=== PATIENT | female | born 1960 | race African-American/Black ===

== ENCOUNTER 2024-01-12 10:40 | Inpatient (IN) | payer OTHER ==
[2024-01-12] VITALS (8 sets, daily range): BP systolic 135–167; BP diastolic 68–102; PULSE 76–86; RESP 12–22; TEMP 98.3–98.8; O2SAT 96–100
[~2024-01-12] VITALS: Ht 162.6 cm; Wt 143.7 kg
[2024-01-12 11:44] LABS: Basophils # (auto) 0.1 10 ^3/uL (0-0.2); Eosinophils # (auto) 0.1 10 ^3/uL (0-0.8)
[2024-01-12 11:48] LABS: Basophils % (auto) 0.8 % (0.0-2.0); Eosinophils % (auto) 0.7 % (0.0-7.0); Hematocrit 37.9 % (36.0-46.0); Hemoglobin 12.3 g/dL (12.2-16.2); Lymphocytes # (auto) 2.5 10 ^3/uL (0.4-5.4); Lymphocytes % (auto) 19.3 % (10.0-50.0); Mean Corpuscular Hemoglobin 26.3 pg (28.0-32.0); Mean Corpuscular Hgb Conc. 32.4 g/dL (32.0-36.0); Mean Corpuscular Volume 81.1 fL (80.0-100.0); Monocytes # (auto) 0.8 10 ^3/uL (0-1.3); Monocytes % (auto) 6.5 % (0.0-12.0); Neutrophils # (auto) 9.2 10 ^3/uL (1.6-8.6); Neutrophils % (auto) 72.7 % (37.0-80.0); Nucleated Red Blood Cells % 0.1 %; Red Blood Cells 4.67 10^6/uL (4.0-5.20); Red Cell Distribution Width 14.8 % (11.8-14.3); White Blood Cell 12.7 10^3/uL (4.4-10.8)
[2024-01-12 11:59] LABS: INR 0.99 (0.9-1.15); Partial Thromboplastin Time 32.7 SEC (24.5-34.5); Prothrombin Time 10.4 sec (9.3-11.8)
[2024-01-12 12:16] LABS: Alanine Aminotransferase 19 U/L (7-40); Alkaline Phosphatase 85 U/L (46-116); Anion Gap 7 (5-15); Aspartate Aminotransferase 56 U/L (13-40); BUN/Creatinine Ratio 14.5 (10.0-20.0); Blood Urea Nitrogen 26 mg/dL (9-23); Carbon Dioxide 24 mmol/L (20-30); Chloride 107 mmol/L (98-107); Glucose 156 mg/dL (74-106); Magnesium 2.2 mg/dL (1.6-2.6); Potassium 4.1 mmol/L (3.5-5.1); Sodium 138 mmol/L (136-145)
[2024-01-12 12:17] LABS: Bilirubin, Total 0.5 mg/dL (0.2-1.0); Total Protein 6.9 g/dL (5.7-8.2)
[2024-01-12] MEDS ORDERED: HEPARIN DRIP/D5W 100UNITS/ML 250 ML IV SCH (13:45)
[2024-01-12] MEDS: ASPirin 325 MG TAB PO ONE (13:45)
[2024-01-12] MEDS: HEPARIN SODIUM (PORCINE) 5000 UNITS/ML 1ML VIAL IV ONE (13:45)
[2024-01-12] MEDS: MIDAZOLAM HCL 2MG/2ML 2ml VIAL (1mg/ml) ONE (13:48)
[2024-01-12] MEDS: fentaNYL CITRATE 100 MCG/2 ML VL ONE (13:48)
[2024-01-12] MEDS: IODIXANOL 320MG/ML 100ML BTL IV ONE ×2 (13:48→14:04)
[2024-01-12] MEDS: LIDOCAINE 2%HCL (LOCAL ANESTH.) INJ 20ML MDV ONE (13:50)
[2024-01-12] MEDS: VERAPAMIL 2.5MG/ML INJ 2ML VIAL IV ONE (13:50)
[2024-01-12] MEDS: SODIUM CHL 0.9% 50 ML ONE ×2 (13:50→14:51)
[2024-01-12] MEDS: HEPARIN SODIUM (PORCINE) 5000 UNITS/ML 1ML VIAL ONE (13:50)
[2024-01-12] MEDS: ANGIOMAX 250 MG VIAL IV ONE ×2 (13:50→14:50)
[2024-01-12 13:53] LABS: Urine Bacteria FEW /hpf (None Seen); Urine Blood TRACE /uL (Negative); Urine Clarity Clear (Clear); Urine Color Light-Yellow (Yellow); Urine Protein, UAD 2+ (Negative); Urine Specific Gravity 1.037 (1.001-1.035); Urine Urobilinogen Normal (Negative); Urine WBC 8 /hpf (0 - 5); Urine pH 5.5 (5.0-9.0)
[2024-01-12] MEDS: SODIUM CHLOR 0.9% PF (SALINE LOCK) 10ML VIAL/SYR IV SCH (14:00)
[2024-01-12 14:02] LABS: Amphetamine Screen, Urine Neg (NEGATIVE); Barbiturate Scree,Urine Neg (NEGATIVE); Benzodiazephine Screen, Urine Neg (NEGATIVE); Cannabinoid Screen, Urine Neg (NEGATIVE); Cocaine Screen, Urine Neg (NEGATIVE); Opiate Scree,Urine Neg (NEGATIVE); Phencyclidine Screen, Urine Neg (NEGATIVE)
[2024-01-12] MEDS ORDERED: MET25T PO (14:25)
[2024-01-12] MEDS ORDERED: LOSA-535 PO (14:25)
[2024-01-12] MEDS ORDERED: EMPA1TAB3 PO (14:25)
[2024-01-12] MEDS ORDERED: CLOP75TA70 PO (14:25)
[2024-01-12] MEDS ORDERED: SEMA2INJ3 SC (14:25)
[2024-01-12] MEDS ORDERED: ATOR40TA52 PO (14:25)
[2024-01-12] MEDS ORDERED: INSU100I70 SC (14:25)
[2024-01-12] MEDS ORDERED: METO-159 PO (14:25)
[2024-01-12] MEDS: ATROPINE SULF 1 MG/10ml SYR ONE (14:28)
[2024-01-12] MEDS ORDERED: DEXTROSE (50%) 50ML SYRG IV PRN (14:30)
[2024-01-12] MEDS ORDERED: NITROGLYCERIN 0.4 MG SL TAB SL PRN (14:30)
[2024-01-12] MEDS ORDERED: MORPHINE SULFATE INJ 2 MG/ml SYRG IV PRN (14:30)
[2024-01-12 14:39] LABS: Triglycerides 196 mg/dL (< 150)
[2024-01-12 14:40] LABS: LDL Cholesterol 143 mg/dL (< 100)
[2024-01-12 14:41] LABS: Cholesterol 225 mg/dL (< 200); HDL Cholesterol 44 mg/dL (40-59)
[2024-01-12] MEDS: HYDROmorphone HCL 2 MG/ML VL/or syr ONE (14:41)
[2024-01-12] MEDS: LABETALOL HCL 5 MG/ML ML 20ML VIAL IV ONE (14:55)
[2024-01-12] MEDS: ceFAZolin 1GM/50ML 50 ML IV ONE (14:56)
[2024-01-12] MEDS: ASPirin 325 MG TAB ONE (14:59)
[2024-01-12] MEDS: TICAGRELOR 90 MG TAB ONE (14:59)
[2024-01-12] MEDS: hydrALAZINE HCL 20 MG/ML VL ONE (15:33)
[2024-01-12] MEDS: ONDANSETRON HCL 4 MG/2 ML VIAL IV PRN (15:45)
[2024-01-12] MEDS: InsuLIN REG 1unit/0.01ml Soln (100units/ml) SC SCH (17:00)
[2024-01-12] MEDS: ACCU-CHEK COMFORT CURVE STRIP VI SCH (17:45)
[2024-01-12] MEDS: SODIUM CHLORIDE 0.9% 1,000 ML IV SCH (17:47)
[2024-01-12] MEDS: HYDROcodone-ACET 5/325MG TAB PO PRN (17:56)
[2024-01-12] MEDS: cefTRIAXone 1GM/50ML D5W 50 ML IV ONE (17:56)
[2024-01-12] MEDS: MORPHINE SULFATE INJ 2 MG/ml SYRG IM ONE (19:30)
[2024-01-12] MEDS: IBUPROFEN 600 MG TAB PO ONE (19:30)
[2024-01-12] MEDS: METOPROLOL TARTRATE 25 MG TAB PO SCH (19:55)
[2024-01-12] MEDS: TICAGRELOR 90 MG TAB PO SCH (19:56)
[2024-01-12] MEDS: ATORVASTATIN 20 MG TAB PO SCH (21:56)
[2024-01-13] VITALS (9 sets, daily range): BP systolic 80–162; BP diastolic 46–98; PULSE 68–83; RESP 18–22; TEMP 97.2–98.3; O2SAT 93–100
[2024-01-13 07:56] LABS: Basophils # (auto) 0.1 10 ^3/uL (0-0.2); Basophils % (auto) 0.4 % (0.0-2.0); Eosinophils # (auto) 0.1 10 ^3/uL (0-0.8); Eosinophils % (auto) 0.9 % (0.0-7.0); Hematocrit 35.1 % (36.0-46.0); Hemoglobin 11.3 g/dL (12.2-16.2); Lymphocytes # (auto) 2.4 10 ^3/uL (0.4-5.4); Lymphocytes % (auto) 19.8 % (10.0-50.0); Mean Corpuscular Hemoglobin 26.2 pg (28.0-32.0); Mean Corpuscular Hgb Conc. 32.1 g/dL (32.0-36.0); Mean Corpuscular Volume 81.7 fL (80.0-100.0); Monocytes # (auto) 1.2 10 ^3/uL (0-1.3); Monocytes % (auto) 10.1 % (0.0-12.0); Neutrophils # (auto) 8.2 10 ^3/uL (1.6-8.6); Neutrophils % (auto) 68.8 % (37.0-80.0); Nucleated Red Blood Cells % 0.1 %; Red Cell Distribution Width 14.7 % (11.8-14.3)
[2024-01-13 08:12] LABS: Alanine Aminotransferase 16 U/L (7-40); Alkaline Phosphatase 80 U/L (46-116); Anion Gap 8 (5-15); Calcium 9.3 mg/dL (8.5-10.1); Carbon Dioxide 24 mmol/L (20-30); Chloride 107 mmol/L (98-107); Glucose 84 mg/dL (74-106); Potassium 4.2 mmol/L (3.5-5.1); Sodium 139 mmol/L (136-145)
[2024-01-13 08:13] LABS: BUN/Creatinine Ratio 10.2 (10.0-20.0); Blood Urea Nitrogen 21 mg/dL (9-23)
[2024-01-13 08:15] LABS: Albumin 3.6 g/dL (3.2-4.8); Aspartate Aminotransferase 55 U/L (13-40); Bilirubin, Total 0.4 mg/dL (0.2-1.0); Total Protein 6.5 g/dL (5.7-8.2)
[2024-01-13] MEDS: ASPirin 81 mg TAB PO SCH (09:19)
[2024-01-13] MEDS: cefTRIAXone 1GM/50ML D5W 50 ML IV SCH (09:19)
[2024-01-13] MEDS: ACETAMINOPHEN 325 MG TAB PO PRN (10:15)
[2024-01-13] MEDS: PANTOPRAZOLE 40 MG/10 ML VIAL INJ IV ONE (11:45)
[2024-01-13] MEDS: SODIUM CHLORIDE 0.9% 500 ML IV ONE (14:45)
[2024-01-13] MEDS: SODIUM CHLORIDE 0.9% 1,000 ML IV ONE (17:28)
[2024-01-13 19:11] LABS: Urine Bacteria None Seen /hpf (None Seen)
[2024-01-13 19:30] LABS: Urine Blood 3+ /uL (Negative); Urine Clarity Turbid (Clear); Urine Color Yellow (Yellow); Urine Mucus FEW (None Seen); Urine Protein, UAD 2+ (Negative); Urine Specific Gravity 1.036 (1.001-1.035); Urine Urobilinogen Normal (Negative); Urine WBC 16 /hpf (0 - 5); Urine pH 5.5 (5.0-9.0)
[2024-01-13] MEDS: METOCLOPRAMIDE HCL 10 MG TAB PO SCH (21:55)
[2024-01-13] MEDS: SODIUM CHLORIDE 0.9% 1,000 ML IV SCH (21:57)
[2024-01-14 01:00] VITALS: BP 150/80; PULSE 90; RESP 18; TEMP 98.1; O2SAT 98
[2024-01-14 05:46] LABS: Basophils # (auto) 0.1 10 ^3/uL (0-0.2); Eosinophils # (auto) 0.2 10 ^3/uL (0-0.8); Eosinophils % (auto) 1.4 % (0.0-7.0); Lymphocytes # (auto) 2.1 10 ^3/uL (0.4-5.4)
[2024-01-14 05:48] LABS: Basophils % (auto) 0.6 % (0.0-2.0); Hematocrit 34.3 % (36.0-46.0); Hemoglobin 10.7 g/dL (12.2-16.2); Lymphocytes % (auto) 18.9 % (10.0-50.0); Mean Corpuscular Hemoglobin 25.7 pg (28.0-32.0); Mean Corpuscular Hgb Conc. 31.2 g/dL (32.0-36.0); Mean Corpuscular Volume 82.4 fL (80.0-100.0); Monocytes # (auto) 1.1 10 ^3/uL (0-1.3); Monocytes % (auto) 9.9 % (0.0-12.0); Neutrophils # (auto) 7.7 10 ^3/uL (1.6-8.6); Neutrophils % (auto) 69.2 % (37.0-80.0); Red Blood Cells 4.16 10^6/uL (4.0-5.20); White Blood Cell 11.1 10^3/uL (4.4-10.8)
[2024-01-14 06:01] LABS: Anion Gap 9 (5-15); Carbon Dioxide 21 mmol/L (20-30); Chloride 108 mmol/L (98-107); Potassium 4.2 mmol/L (3.5-5.1); Sodium 138 mmol/L (136-145)
[2024-01-14 06:03] LABS: Calcium 8.9 mg/dL (8.5-10.1)
[2024-01-14 06:08] LABS: BUN/Creatinine Ratio 10.4 (10.0-20.0); Blood Urea Nitrogen 29 mg/dL (9-23); Glucose 158 mg/dL (74-106)
[2024-01-14 08:00] VITALS: PULSE 82
[2024-01-14 08:15] VITALS: BP 131/82; PULSE 80; RESP 18; TEMP 98.3; O2SAT 97
[2024-01-14] MEDS: PANTOPRAZOLE 40 MG/10 ML VIAL INJ IV SCH (09:57)
[2024-01-14] MEDS: FUROSEMIDE 40 MG/4 ML VIAL IV ONE (09:58)
[2024-01-14] MEDS ORDERED: DexAMETHasone INJECTION 10 MG in D5W 5% 50 ML IV SCH (10:00)
[2024-01-14 12:15] VITALS: BP 160/84; PULSE 77; RESP 20; TEMP 97.7; O2SAT 98
[2024-01-14 17:00] VITALS: BP 154/98; PULSE 83; RESP 22; TEMP 98.1; O2SAT 95
[2024-01-14 17:24] VITALS: BP 131/82; PULSE 80
[2024-01-14] MEDS: HYDROmorphone HCL 2 MG/ML VL/or syr IV ONE (18:31)
== END 2024-01-14 19:03 | disposition short-term general hospital (02) | DRG 321 ==
LOC: ER 10:40 → TELE 14:24 → TELE-CENTR 17:43
PROVIDERS: ADMIT Nurse Practitioner Family; ATTEND Internal Medicine
PROC: 027035Z Dilation of Coronary Artery, One Artery with Two Drug-eluting Intraluminal Devices, Percutaneous Approach (ICD-10-PCS; principal; 2024-01-12)
PROC: 02C03ZZ Extirpation of Matter from Coronary Artery, One Artery, Percutaneous Approach (ICD-10-PCS; 2024-01-12)
PROC: 4A023N7 Measurement of Cardiac Sampling and Pressure, Left Heart, Percutaneous Approach (ICD-10-PCS; 2024-01-12)
PROC: B211YZZ Fluoroscopy of Multiple Coronary Arteries using Other Contrast (ICD-10-PCS; 2024-01-12)
PROC: B41JYZZ Fluoroscopy of Other Lower Arteries using Other Contrast (ICD-10-PCS; 2024-01-12)
DX: I21.19 ST elevation (STEMI) myocardial infarction involving other coronary artery of inferior wall (principal); N17.0 Acute kidney failure with tubular necrosis; G93.40 Encephalopathy, unspecified; I69.354 Hemiplegia and hemiparesis following cerebral infarction affecting left non-dominant side; Z68.43 Body mass index [BMI] 50.0-59.9, adult; R65.10 Systemic inflammatory response syndrome (SIRS) of non-infectious origin without acute organ dysfunction; E66.01 Morbid (severe) obesity due to excess calories; E78.5 Hyperlipidemia, unspecified; E11.22 Type 2 diabetes mellitus with diabetic chronic kidney disease; N18.9 Chronic kidney disease, unspecified; R04.0 Epistaxis; I12.9 Hypertensive chronic kidney disease with stage 1 through stage 4 chronic kidney disease, or unspecified chronic kidney disease; F17.200 Nicotine dependence, unspecified, uncomplicated; E11.65 Type 2 diabetes mellitus with hyperglycemia; Z79.899 Other long term (current) drug therapy; Z79.82 Long term (current) use of aspirin; Z79.02 Long term (current) use of antithrombotics/antiplatelets; Z88.5 Allergy status to narcotic agent
CPT/HCPCS: 36415; 70450; 70496; 71045; 76775; 80048; 80053; 80061; 80307; 81001; 82962; 83036; 83605; 83735; 83880; 83930; 84443; 84484; 85025; 85610; 85730; 87040; 93005; 93306; 96365; 99152; C9113; G0378; J1100; J1815; J2250; J2405; J7060; Q9967

== ENCOUNTER 2025-05-05 20:17 | Emergency (ER) | payer OTHER ==
[~2025-05-05] VITALS: Ht 172.7 cm; Wt 130.0 kg
[~2025-05-05 20:17] MED LIST: ATOR40TA52 PO; CLOP75TA70 PO; EMPA1TAB3 PO; INSU100I70 SC; LOSA-535 PO; MET25T PO; METO-159 PO; SEMA2INJ3 SC
--- NOTE | 2025-05-05 21:14 | ED.PDOC ---
Musculoskeletal HPI Comments 64-year-old female who came to ER for bilateral leg edema. Patient has a history of hypertension, diabetes, dyslipidemia, kidney failure, mi, CVA with left-sided residuals. Has been complaining of bilateral pedal edema for over 3 months, left worse than right, associated with shooting pains from the foot go ing upwards. Patient has been given Lasix offered no relief of the swelling. Patient is sent here by [facility], to rule out DVTs. Upon arrival blood pressure was 202/91 mm Hg Chief Complaint: Lower Extremity Time Seen by MD: 21:13 Primary Care Provider: WIL Reviewed Notes: Nurses Notes Allergies: Coded Allergies: Morphine (Verified Allergy, Unknown, 01/12/24) Home Meds Reported Medications Insulin Glargine-Yfgn (Insulin Glargine) 100 Unit/Ml Inj, SC 01/12/24 Clopidogrel Bisulfate (CLOPIDOGREL) 75 Mg Tab, 1 TAB PO DAILY 01/12/24 Metoprolol Tartrate (Lopressor) 25 Mg Tb, 1 TAB PO BID 01/12/24 Losartan Potassium (Losartan Potassium) 100 Mg Tab, 1 TAB PO DAILY 01/12/24 Metoprolol Tartrate (Metoprolol Tartrate) 100 Mg Tab, 1 TAB PO BID 01/12/24 Atorvastatin Calcium (ATORVASTATIN CALCIUM) 40 Mg Tab, 1 TAB PO DAILY 01/12/24 Empagliflozin (Jardiance) 25 Mg Tab, TAB PO 01/12/24 Semaglutide (Ozempic) 2 Mg/3 Ml Inj, SC 01/12/24 Information Source: Patient Mode of Arrival: Ambulatory Location: Bilateral Extremity Location: Foot, Leg Timing: Months Severity: Moderate Able to Move Extremity: Yes Bear Weight: Limited Pain: Moderate Mechanism: Spontaneous Circumstances: Spontaneous Onset of Symptoms: Spontaneous Symptoms: Swelling, Pain Associated signs and symptoms: Leg pain, Foot pain Past Medical History PAST MEDICAL HISTORY: CKF, CVA, DM, High Lipids, HTN, IA Surgical History (Other): Angioplasty MEDICAL INSURANCE CODING SPECIALIST History: Denies all MEDICAL INSURANCE CODING SPECIALIST Hx Family History Family History: Reviewed,noncontributory to illness Social History Smoker: Non-Smoker Alcohol: Denies ETOH Use Drugs: Denies Drug Use Lives In: Home Constitutional: denies: chills, diaphoresis, fatigue, fever, malaise, sweats, weakness, others EENTM: denies: blurred vision, double vision, ear bleeding, ear discharge, ear drainage, ear pain, ear ringing, eye pain, eye redness, hearing loss, mouth pain, mouth swelling, nasal discharge, nose bleeding, nose congestion, nose pain, photophobia, tearing, throat pain, throat swelling, voice changes, others Respiratory: denies: cough, hemoptysis, orthopnea, SOB at rest, shortness of breath, SOB with excertion, stridor, wheezing, others Cardiovascular: denies: chest pain, dizzy spells, diaphoresis, Dyspnea on exertion, edema, irregular heart beat, left arm pain, lightheadedness, palp itations, PND, syncope, others Gastrointestinal: denies: abdomen distended, abdominal pain, blood streaked bowels, constipated, diarrhea, dysphagia, difficulty swallowing, hematemesis, melena, nausea, poor appetite, poor fluid intake, rectal bleeding, rectal pain, vomiting, others Genitourinary: denies: abnormal vagina bleeding, burning, dyspareunia, dysuria, flank pain, frequency, hematuria, incontinence, pain, , vagina discharge, urgency, others Neurological: denies: dizziness, fainting, headache, left sided numbness, left sided weakness, numbness, paresthesia, pre-existing deficit, right sided numbness, right sided weakness, seizure, speech problems, tingling, tremors, weakness, others Musculoskeletal: reports: others (Bilateral leg edema); denies: back pain, gout, joint pain, joint swelling, muscle pain, muscle stiffness, neck pain Integumetry: denies: bruises, change in color, change in hair/nails, dryness, laceration, lesions, lumps, rash, wounds, others Allergic/Immunocompromised: denies: Difficulty Healing, Frequent Infections, Hives, Itching, others Hematologic/Lymphatic: denies: anemia, blood clots, easy bleeding, easy bruising, swollen glands, others Endocrine: denies: excessive hunger, excessive sweating, excessive thirst, excessive urination, flushing, intolerance to cold, intolerance to heat, une xplained weight gain, unexplained weight loss, others Psychiatric: denies: anxiety, bipolar disorder, depression, hopeless, panic disorder, schizophrenia, sleepless, suicidal, others Physical Exam General Appearance: No Apparent Distress, Normal HEENT: Normal ENT Inspection, Pharynx Normal, TMs Normal Neck: Full Range of Motion, Non-Tender, Normal, Normal Inspection Respiratory: Chest Non-Tender, Lungs Clear, No Accessory Muscle Use, No Respiratory Distress, Normal Breath Sounds Cardiovascular: No Edema, No JVD, No Murmur, No Gallop, Normal Peripheral Pulses, Regular Rate/Rhythm Breast Exam: Deferred Gastrointestinal: No Organomegaly, Non Tender, No Pulsatile Mass, Normal Bowel Sounds, Soft Genitalia: Deferred Pelvic: Deferred Rectal: Deferred Extremities: Leg edema (Bilateral), No calf tenderness, Normal capillary refill, Normal range of motion, Non-tender, Pedal edema (Bilateral), Swelling Musculoskeletal : Apperance: Normal Neurologic: Alert, international account manager II-XII nml as Tested, No Motor Deficits, Normal Affect, Normal Mood, No Sensory Deficits Cerebellar Function: Normal Reflexes: Normal Skin: Dry, Normal Color, Warm Lymphatic: No Adenopathy Was a procedure done? Was a procedure done?: No Differential Diagnosis EXT Differential Diagnosis: Cellulitis, CHF, Deep Vein Thrombosis X-Ray, Labs, Meds, VS Vital Signs Date Time Temp Pulse Resp B/P (MAP) Pulse Ox O2 Delivery O2 Flow Rate FiO2 05/05/25 22:29 98.2 68 16 170/111 (130) 94 98.2 05/05/25 20:43 62 05/05/25 20:19 97.9 69 16 202/91 98 97.9 Lab Test 05/05/25 21:51 Range/Units White Blood Count 9.5 4.4-10.8 10^3/uL Red Blood Count 4.90 4.0-5.20 10^6/uL Hemoglobin 12.9 12.2-16.2 g/dL Hematocrit 39.7 36.0-46.0 % Mean Corpuscular Volume 81.0 80.0-100.0 fL Mean Corpuscular Hemoglobin 26.4 L 28.0-32.0 pg Mean Corpuscular Hemoglobin Concent 32.6 32.0-36.0 g/dL Red Cell Distribution Width 14.6 H 11.8-14.3 % Platelet Count 238 140-450 10^3/uL Mean Platelet Volume 10.2 6.9-10.8 fL Neutrophils (%) (Auto) 59.3 37.0-80.0 % Lymphocytes (%) (Auto) 29.2 10.0-50.0 % Monocytes (%) (Auto) 7.6 0.0-12.0 % Eosinophils (%) (Auto) 3.0 0.0-7.0 % Basophils (%) (Auto) 0.9 0.0-2.0 % Neutrophils # (Auto) 5.6 1.6-8.6 10 ^3/uL Lymphocytes # (Auto) 2.8 0.4-5.4 10 ^3/uL Monocytes # (Auto) 0.7 0-1.3 10 ^3/uL Eosinophils # (Auto) 0.3 0-0.8 10 ^3/uL Basophils # (Auto) 0.1 0-0.2 10 ^3/uL Nucleated Red Blood Cells 0.0 % Prothrombin Time 10.0 9.3-11.8 sec Prothrombin Time INR 0.94 0.9-1.15 Activated Partial Thromboplast Time 28.0 24.5-34.5 SEC Sodium Level 140 136-145 mmol/L Potassium Level 4.5 3.5-5.1 mmol/L Chloride Level 109 H 98-107 mmol/L Carbon Dioxide Level 21 20-31 mmol/L Anion Gap 10 5-15 Blood Urea Nitrogen 47 H 9-23 mg/dL Creatinine 3.79 H 0.550-1.02 mg/dL Glomerular Filtration Rate Calc 13 >90 mL/min BUN/Creatinine Ratio 12.4 10.0-20.0 Serum Glucose 215 H 74-106 mg/dL Calcium Level 8.8 8.7-10.4 mg/dL B-Type Natriuretic Peptide 192.34 0-100 pg/mL Bilateral lower extremity venous duplex Clinical History: swelling / pain r/o DVT Comparison: None Technique: Duplex Doppler evaluation of the deep venous systems of both lower extremities from the common femoral veins to the popliteal veins including color Doppler and spectral/pulsed waveform analysis was performed. Findings: RIGHT SIDE: The common femoral vein demonstrates appropriate compressibility and waveform variability. There is compressibility/patency of the great saphenous vein at the proximal thigh. The femoral vein demonstrates appropriate compressibility and waveform variability. The deep femoral vein demonstrates appropriate compressibility and waveform variability. The popliteal vein demonstrates appropriate compressibility and waveform variability. There is normal compressibility at the tibioperoneal trunk. LEFT SIDE: The common femoral vein demonstrates appropriate compressibility and waveform variability. There is compressibility/patency of the great saphenous vein at the proximal thigh. The femoral vein demonstrates appropriate compressibility and waveform variability. The deep femoral vein demonstrates appropriate compressibility and waveform variability. The popliteal vein demonstrates appropriate compressibility and waveform variability. There is normal compressibility at the tibioperoneal trunk. Impression: 1. No right or left femoropopliteal venous thrombosis. HS:Y Time of 1ST Reevaluation: 20:51 Reevaluation 1ST: Unchanged Patient Education/Counseling: Diagnosis, Treatment Family Education/Counseling: No Family Present Departure 1 Departure Time of Disposition: 23:10 Impression: Primary Impression: Acute renal injury Additional Impressions: Edema Hypertensive urgency Disposition: 02 SHORT TERM HOSPITAL Admit to: Other (transfer) Condition: Guarded Comments 64-year-old female with acute renal injury and hypertensive urgency. Creatinine is significantly worse than prior at 3.8. Patient was given a small dose of IV fluids and IV hydralazine. I contacted [facility] and they authorized to transfer the patient they will transfer the patient to a [facility] facility. Authorization #[id number] Critical Care Note Critical Care Time?: Yes (35 min-critical care time only) Critical care comment: Hypertensive urgency Total critical care time: Approximately 36 minutes Due to a high probability of clinically significant, life threatening deterioration, the patient required my highest level of preparedness to intervene emergently and I personally spent this critical care time directly and personally managing the patient. This critical care time included obtaining a history; examining the patient; pulse oximetry; ordering and review of studies; arranging urgent treatment with development of a management plan; evaluation of patient's response to treatment; frequent reassessment; and, discussions with other providers. This critical care time was performed to assess and manage the high probability of imminent, life-threatening deterioration that could result in multi-organ failure. It was exclusive of separately billable procedures and treating other patients. Stability Stability form required: No Heart Score Heart Score: Heart Score Response (Comments) Value History N/A 0 EKG N/A 0 Age N/A 0 Risk Factors N/A 0 Troponin N/A 0 Total 0 I personally scribed for ALFONZO ZAMORA MD ([email or web address]) on 05/05/25 at 21:14. Electronically submitted by Darnell Garcia ([facility]). I personally scribed for ALFONZO ZAMORA MD ([email or web address]) on 05/05/25 at 21:48. Electronically submitted by Darnell Garcia ([facility]). ALFONZO ZAMORA MD May 05, 2025 21:14
--- NOTE | 2025-05-05 21:37 | DVH ---
Bilateral lower extremity venous duplex Clinical History: swelling / pain r/o DVT Comparison: None Technique: Duplex Doppler evaluation of the deep venous systems of both lower extremities from the common femora l veins to the popliteal veins including color Doppler and spectral/pulsed waveform analysis was perf ormed. Findings: RIGHT SIDE: The common femoral vein demonstrates appropriate compressibility and waveform variability. There is compressibility/patency of the great saphenous vein at the proximal thigh. The femoral vein demonstrates appropriate compressibility and waveform variability. The deep femoral vein demonstrates appropriate compressibility and waveform variability. The popliteal vein demonstrates appropriate compressibility and waveform variability. There is normal compressibility at the tibioperoneal trunk. LEFT SIDE: The common femoral vein demonstrates appropriate compressibility and waveform variability. There is compressibility/patency of the great saphenous vein at the proximal thigh. The femoral vein demonstrates appropriate compressibility and waveform variability. The deep femoral vein demonstrates appropriate compressibility and waveform variability. The popliteal vein demonstrates appropriate compressibility and waveform variability. There is normal compressibility at the tibioperoneal trunk. Impression: 1. No right or left femoropopliteal venous thrombosis. HS:Y
[2025-05-05 22:02] LABS: Hematocrit 39.7 % (36.0-46.0); Hemoglobin 12.9 g/dL (12.2-16.2); Mean Corpuscular Hemoglobin 26.4 pg (28.0-32.0); Mean Corpuscular Volume 81.0 fL (80.0-100.0); Nucleated Red Blood Cells % 0.0 %
[2025-05-05 22:06] LABS: Potassium 4.5 mmol/L (3.5-5.1); Sodium 140 mmol/L (136-145)
[2025-05-05 22:07] LABS: Anion Gap 10 (5-15); Carbon Dioxide 21 mmol/L (20-31)
[2025-05-05 22:08] LABS: Calcium 8.8 mg/dL (8.7-10.4)
[2025-05-05 22:13] LABS: BUN/Creatinine Ratio 12.4 (10.0-20.0)
[2025-05-05 22:15] LABS: INR 0.94 (0.9-1.15); Partial Thromboplastin Time 28.0 SEC (24.5-34.5); Prothrombin Time 10.0 sec (9.3-11.8)
[2025-05-05 22:20] LABS: Blood Urea Nitrogen 47 mg/dL (9-23); Chloride 109 mmol/L (98-107); Glucose 215 mg/dL (74-106)
[2025-05-06] MEDS: hydrALAZINE HCL 20 MG/ML VL IV ONE ×2 (00:52→03:24)
[2025-05-06] MEDS: SODIUM CHLORIDE 0.9% 500 ML IV ONE (01:28)
[2025-05-06] MEDS: ACETAMINOPHEN 325 MG TAB PO ONE (04:51)
[2025-05-06] MEDS: ONDANSETRON HCL 4 MG/2 ML VIAL IV ONE (05:31)
[2025-05-06] MEDS: MORPHINE SULFATE 4 MG/ML SYR/VIAL IV ONE (05:32)
[2025-05-06] MEDS: KETOROLAC TROMETH 30 MG/ML 1ML VIAL IV ONE (05:44)
[2025-05-06 07:30] VITALS: PULSE 82; RESP 17; O2SAT 96
[2025-05-06] MEDS: METOPROLOL TARTRATE 50 MG TAB PO ONE (08:07)
[2025-05-06] MEDS: LOSARTAN POTASSIUM 50 MG TAB PO ONE (08:08)
[2025-05-06 08:49] VITALS: TEMP 97.8
[2025-05-06 09:00] VITALS: BP 149/73; PULSE 76; RESP 16; O2SAT 92
--- NOTE | 2025-05-08 10:29 | ECG ---
[facility] Test Date: 2025-05-05 Test Time: 20:43:25 Pat Name: BLAIR RUTH Department: Room: Gender: F Director Foundation: EILEEN : 1960 Requested By: ALFONZO ZAMORA Order Number: [id number] Reading MD: Merlin Carmichael Measurements Intervals [place] Rate: 62 P: 49 MT: 172 QRS: 55 QRSD: 103 T: -36 QT: 450 QTc: 457 Interpretive Statements Sinus rhythm Borderline repolarization abnormality Electronically Signed On 05-08-2025 22:52:10 PDT by Merlin Carmichael Please click the below link to view image of tracing.
== END 2025-05-06 09:48 | disposition short-term general hospital (02) ==
LOC: ER 20:17
DX: N17.9 Acute kidney failure, unspecified (principal); R60.0 Localized edema; I16.0 Hypertensive urgency; I12.9 Hypertensive chronic kidney disease with stage 1 through stage 4 chronic kidney disease, or unspecified chronic kidney disease; E11.22 Type 2 diabetes mellitus with diabetic chronic kidney disease; N18.9 Chronic kidney disease, unspecified; E78.5 Hyperlipidemia, unspecified; Z79.899 Other long term (current) drug therapy; Z98.890 Other specified postprocedural states; Z86.73 Personal history of transient ischemic attack (TIA), and cerebral infarction without residual deficits; Z88.5 Allergy status to narcotic agent
CPT/HCPCS: 36415; 80048; 82947; 83880; 85025; 85610; 85730; 93005; 93970; 96374; 96375; 96376; 99285; J0360; J1885; 82962; J2405

== ENCOUNTER 2025-07-14 14:20 | Emergency (ER) | payer OTHER ==
[~2025-07-14] VITALS: Ht 157.5 cm; Wt 100.0 kg
[2025-07-14 15:29] VITALS: PULSE 66; RESP 10; O2SAT 98
--- NOTE | 2025-07-14 15:29 | ED.PDOC ---
History of Present Illness HPI Comments Ms. Lopez is a 64 year old female with PMHx of hypertension, type 2 diabetes mellitus, hyperlipidemia, NM s/p PCI x 2 MARV in December 2024, ESRD on dialysis (), and CVA with left sided residual weakness, who presents today [facility] from [facility] due to loss of consciousness. Per EMS, staff found the patient unresponsive, her blood glucose was found to be in the 40s. She was given juice and EMS was subsequently called. On the scene, blood glucose was 102 with stable vitals. Per the patient, she states that she felt very dizzy and lethargic before she passed out. According to her, she got her dose of insulin at lunch time, however, due to not liking the food she did not eat much. She currently denies nausea, vomiting, fever, lethargy, generalized body aches, chest pain, abdominal pain, headache, disorientation, incontinence, and worsening of her residual weakness post stroke. On evaluation in the ED, she is AOx4, vitals are stable, physical exam positive for left sided weakness she states is from her previous stroke. Chief Complaint: General Weakness Time Seen by MD: 15:00 Primary Care Provider: WIL Allergies: Coded Allergies: Morphine (Verified Allergy, Unknown, 01/12/24) Home Meds Reported Medications Insulin Glargine-Yfgn (Insulin Glargine) 100 Unit/Ml Inj, SC 01/12/24 Clopidogrel Bisulfate (CLOPIDOGREL) 75 Mg Tab, 1 TAB PO DAILY 01/12/24 Metoprolol Tartrate (Lopressor) 25 Mg Tb, 1 TAB PO BID 01/12/24 Losartan Potassium (Losartan Potassium) 100 Mg Tab, 1 TAB PO DAILY 01/12/24 Metoprolol Tartrate (Metoprolol Tartrate) 100 Mg Tab, 1 TAB PO BID 01/12/24 Atorvastatin Calcium (ATORVASTATIN CALCIUM) 40 Mg Tab, 1 TAB PO DAILY 01/12/24 Empagliflozin (Jardiance) 25 Mg Tab, TAB PO 01/12/24 Semaglutide (Ozempic) 2 Mg/3 Ml Inj, SC 01/12/24 Mode of Arrival: EMS Severity: Mild Timing: Hours Duration: Since onset Prehospital treatment: Accucheck Medication Refill: For: Diabetes Past Medical History PAST MEDICAL HISTORY: CKF, CVA, DM, High Lipids, HTN, NM Surgical History (Other): PCI x 2 MARV UNARMED SECURITY OFFICER History: Denies all UNARMED SECURITY OFFICER Hx Family History Family History: Reviewed,noncontributory to illness Social History Smoker: Non-Smoker Alcohol: Denies ETOH Use Drugs: Denies Drug Use Lives In: Home Constitutional: reports: fatigue; denies: chills, diaphoresis, fever, malaise, sweats, weakness EENTM: denies: blurred vision, double vision, mouth pain, mouth swelling, nasal discharge, nose bleeding, nose congestion, nose pain, photophobia, throat pain, throat swelling Respiratory: denies: cough, hemoptysis, orthopnea, shortness of breath Cardiovascular: reports: lightheadedness; denies: chest pain, diaphoresis, Dyspnea on exertion, edema, left arm pain, palpitations, syncope Gastrointestinal: denies: abdomen distended, abdominal pain, constipated, diarrhea, melena, nausea, poor appetite, poor fluid intake, vomiting Genitourinary: denies: burning, dysuria, flank pain, frequency, hematuria, incontinence, pain, urgency Neurological: reports: dizziness, left sided weakness, pre-existing deficit (Left sided weakness ); denies: fainting, headache, numbness, paresthesia, right sided numbness, right sided weakness, seizure, speech problems, tingling, tremors, weakness Musculoskeletal: denies: back pain, joint pain, joint swelling, muscle pain, muscle stiffness, neck pain Integumetry: denies: bruises, laceration, lesions, lumps, rash, wounds Physical Exam General Appearance: Normal, Obese HEENT: Normal ENT Inspection, PERRL/EOMI, Pharynx Normal Neck: Full Range of Motion, Non-Tender, Normal Inspection Respiratory: Chest Non-Tender, Lungs Clear, No Accessory Muscle Use, No Respiratory Distress, Normal Breath Sounds, Other (Presence of dialysis catheter in right pectoral region, no erythema, induration, or suppuration from the cat heter's insertion point) Cardiovascular: No Edema, No Murmur, Normal Peripheral Pulses, Regular Rate/Rhythm Breast Exam: Deferred Gastrointestinal: No Organomegaly, Non Tender, Normal Bowel Sounds, Soft Genitalia: Deferred Pelvic: Deferred Rectal: Deferred Extremities: Normal capillary refill, Normal inspection, Non-tender, No pedal edema, Other (Decreased strength and motion of left arm and leg ) Neurologic: Other (Strength in R upper and lower extremity 5/5, Strength in left upper and lower extremity , ) Cerebellar Function: Normal Reflexes: NOT DONE Skin: Normal Color Lymphatic: Other (No cervical adenopathy ) Was a procedure done? Was a procedure done?: No EKG EKG : Pulse Rate (adult): 63 [place]: Normal Cardiac Rhythm: NSR Block: None Hypertrophy: None Comments Abnormal inferior Q waves Differential Dx Considerations may include: Hypoglycemia, syncope, seizure, TIA, CVA X-Ray, Labs, Meds, VS Vital Signs Date Time Temp Pulse Resp B/P (MAP) Pulse Ox O2 Delivery O2 Flow Rate FiO2 07/14/25 18:00 63 07/14/25 14:27 97.7 64 18 133/86 97 97.7 07/14/25 14:23 63 Lab Test 07/14/25 18:55 07/14/25 18:02 07/14/25 16:02 Range/Units Urine Color Colorless Yellow Urine Clarity Turbid H Clear Urine pH 7.0 5.0-9.0 Urine Specific [place] 1.007 1.001-1.035 Urine Protein 1+ H Negative Urine Ketones Negative Negative Urine Blood Negative Negative /uL Urine Nitrite Negative Negative Urine Bilirubin Negative Negative Urine Urobilinogen Normal Negative mg/dL Urine Leukocyte Esterase Negative Negative /uL Urine RBC 2 0 - 4 /hpf Urine Microscopic WBC 1 0-5 /HPF Urine Squamous Epithelial Cells Few <5 /hpf Urine Bacteria Few H None Seen /hpf Urine Glucose Normal Normal mg/dL Troponin I High Sensitivity 10 </=34 ng/L White Blood Count 10.0 4.4-10.8 10^3/uL Red Blood Count 4.06 4.0-5.20 10^6/uL Hemoglobin 10.7 L 12.2-16.2 g/dL Hematocrit 32.6 L 36.0-46.0 % Mean Corpuscular Volume 80.5 80.0-100.0 fL Mean Corpuscular Hemoglobin 26.4 L 28.0-32.0 pg Mean Corpuscular Hemoglobin Concent 32.7 32.0-36.0 g/dL Red Cell Distribution Width 16.2 H 11.8-14.3 % Platelet Count 160 140-450 10^3/uL Mean Platelet Volume 9.4 6.9-10.8 fL Neutrophils (%) (Auto) 66.9 37.0-80.0 % Lymphocytes (%) (Auto) 23.5 10.0-50.0 % Monocytes (%) (Auto) 6.8 0.0-12.0 % Eosinophils (%) (Auto) 2.1 0.0-7.0 % Basophils (%) (Auto) 0.7 0.0-2.0 % Neutrophils # (Auto) 6.7 1.6-8.6 10 ^3/uL Lymphocytes # (Auto) 2.4 0.4-5.4 10 ^3/uL Monocytes # (Auto) 0.7 0-1.3 10 ^3/uL Eosinophils # (Auto) 0.2 0-0.8 10 ^3/uL Basophils # (Auto) 0.1 0-0.2 10 ^3/uL Nucleated Red Blood Cells 0.0 % Sodium Level 137 136-145 mmol/L Potassium Level 4.9 3.5-5.1 mmol/L Chloride Level 95 L 98-107 mmol/L Carbon Dioxide Level 32 H 20-31 mmol/L Anion Gap 10 5-15 Blood Urea Nitrogen 49 H 9-23 mg/dL Creatinine 4.11 H 0.550-1.02 mg/dL Glomerular Filtration Rate Calc 12 >90 mL/min BUN/Creatinine Ratio 11.9 10.0-20.0 Serum Glucose 83 74-106 mg/dL Calcium Level 9.4 8.7-10.4 mg/dL Total Bilirubin 0.2 0.2-1.0 mg/dL Aspartate Amino Transferase (AST) 49 H 13-40 U/L Alanine Aminotransferase (ALT) 69 H 7-40 U/L Alkaline Phosphatase 130 H 46-116 U/L Total Protein 7.3 5.7-8.2 g/dL Albumin 4.1 3.2-4.8 g/dL Time of 1ST Reevaluation: 17:00 Reevaluation 1ST: Improved Patient Education/Counseling: Diagnosis, Treatment Family Education/Counseling: Diagnosis, Treatment Comments The patient due to acute loss of consciousness Comments The patient presented today due to acute loss of consciousness During syncopal episode, that patient's blood glucose was found to be in the 40s, after which glucose was given. On scene, EMS reports that glucose of 102 with stable vitals On initial evaluation, the patient is AOx4, with stable vitals, and with no apparent deformities Physical exam is positive for presence of dialysis catheter in right pectoral region and weakness of left upper and lower extremity which is residual from previous stroke CBC significant for normocytic anemia, CMP signficant for creatinine 4.11 BUN 49 ALT 69 AST ALP 139. Follow up blood glucose is 83. EKG shows Sinus rhythm with abnormal inferior Q waves. Head CT: Shows no acute abnormality After review of all data, the patient merits admission for further eval. She is considered stable, she has been accepted for transfer to [facility]. I have spoke with [facility] patient representative Dr. Madrigal Case #:[id number] SEPSIS Sepsis Screen Date sepsis recognized/suspect: Jul 14, 2025 Time Sepsis recognized/suspect: 1430 Recent Procedure: No On Antibiotic Therapy: No Respiratory Rate >20: No Heart Rate >90: No Temp<36 C (96.8 F) or >38.3 C: No SBP <90 or MAP <65 mmHG: No New Acute Mental Status Change: No Is the patient on CPAP, BIPAP,: No Physician Orders Head Without Contrast (07/14/25 16:21) Vital Signs Date Time Temp Pulse Resp B/P (MAP) Pulse Ox O2 Delivery O2 Flow Rate FiO2 07/14/25 18:00 63 07/14/25 14:27 97.7 64 18 133/86 97 97.7 07/14/25 14:23 63 Laboratory Tests Test 07/14/25 16:02 White Blood Count 10.0 10^3/uL (4.4-10.8) Departure 1 Departure Time of Disposition: 19:38 Impression: Primary Impression: Hypoglycemia Additional Impression: Syncope Disposition: 30 STILL A PATIENT Condition: Stable Critical Care Note Critical Care Time?: No Stability Stability form required: SIDNEY Kulkarni RESIDENT Jul 14, 2025 15:29
[2025-07-14 16:31] LABS: Hematocrit 32.6 % (36.0-46.0); Hemoglobin 10.7 g/dL (12.2-16.2); Mean Corpuscular Hemoglobin 26.4 pg (28.0-32.0); Mean Corpuscular Volume 80.5 fL (80.0-100.0); Nucleated Red Blood Cells % 0.0 %
[2025-07-14 16:47] LABS: Albumin 4.1 g/dL (3.2-4.8); Anion Gap 10 (5-15); BUN/Creatinine Ratio 11.9 (10.0-20.0); Calcium 9.4 mg/dL (8.7-10.4); Glucose 83 mg/dL (74-106); Potassium 4.9 mmol/L (3.5-5.1); Sodium 137 mmol/L (136-145); Total Protein 7.3 g/dL (5.7-8.2)
[2025-07-14 16:54] LABS: Alanine Aminotransferase 69 U/L (7-40); Alkaline Phosphatase 130 U/L (46-116); Bilirubin, Total 0.2 mg/dL (0.2-1.0); Blood Urea Nitrogen 49 mg/dL (9-23); Carbon Dioxide 32 mmol/L (20-31); Chloride 95 mmol/L (98-107)
--- NOTE | 2025-07-14 18:14 | ECG ---
[facility] Test Date: 2025-07-14 Test Time: 14:23:21 Pat Name: BLAIR RUTH Department: [facility] ED Patient ID: [facility]-[id number] Room: Gender: F Stogy Roller: MARIAELENA : 1960 Requested By: GIOVANNI JOHNSON Order Number: [id number] Reading MD: Measurements Intervals [place] Rate: 63 P: 72 [place]: 209 QRS: 35 QRSD: 149 T: 8 QT: 442 QTc: 453 Interpretive Statements Sinus rhythm Nonspecific intraventricular conduction delay Abnormal inferior Q waves Please click the below link to view image of tracing.
--- NOTE | 2025-07-14 18:46 | DVH ---
EXAM: CT HEAD WITHOUT CONTRAST INDICATION: LOC TECHNIQUE: CT images of the head were obtained without administration of IV contrast. CT scans at [facility] use dose modulation, iterative reconstruction, and/or weight based dosing when appropriate to reduce radiation dose to as low as reasonably achievable. COMPARISON: CT ANGIO HEAD/NECK on DOS: 01/12/24 FINDINGS: PARENCHYMA: No acute hemorrhage. There is no mass effect, midline shift, or herniation. Encephalomala jackson right posterior inferior cerebellar hemisphere. Mild scattered hypoattenuation along the perivent ricular, centrum semiovale, and deep white matter tracts, which are nonspecific however statistically most likely represent chronic microvascular ischemic change. VENTRICLES: No hydrocephalus. EXTRA-AXIAL SPACES: No extra-axial fluid collections. OTHER: The bony structures are intact. Visualized portions of the paranasal sinuses and mastoid air cells are clear. IMPRESSION: 1. No CT evidence of an acute intracranial abnormality. 2. Chronic microvascular ischemic change and encephalomalacia.
[2025-07-14 19:30] LABS: Urine Protein, UAD 1+ (Negative)
[2025-07-14 22:20] VITALS: BP 136/50; PULSE 82; RESP 20; TEMP 98.1; O2SAT 98
== END 2025-07-14 22:30 | disposition short-term general hospital (02) ==
LOC: EDBD 14:20 → ER 14:20
DX: I12.0 Hypertensive chronic kidney disease with stage 5 chronic kidney disease or end stage renal disease (principal); E11.22 Type 2 diabetes mellitus with diabetic chronic kidney disease; E11.649 Type 2 diabetes mellitus with hypoglycemia without coma; N18.6 End stage renal disease; R55 Syncope and collapse; E78.5 Hyperlipidemia, unspecified; I25.2 Old myocardial infarction; Z79.899 Other long term (current) drug therapy; Z79.02 Long term (current) use of antithrombotics/antiplatelets; Z88.5 Allergy status to narcotic agent; Z95.5 Presence of coronary angioplasty implant and graft; Z99.2 Dependence on renal dialysis
CPT/HCPCS: 36415; 70450; 80053; 81001; 84484; 85025; 93005